=== PATIENT | female | born 1935 | race Caucasian/White ===

== ENCOUNTER → 2018-03-24 | Outpatient (CLI) | payer MEDICARE, BC | END | disposition home or self-care (01) | LOC: KCIC 15:06 | DX: M61.9 Calcification and ossification of muscle, unspecified (principal) | CPT/HCPCS: 71120 ==

== ENCOUNTER → 2021-11-04 | Outpatient (CLI) | payer MEDICARE, BC ==
[~2021-11-04] MED LIST: IOHEXOL 300 MG/ML 100ML VIAL. IV ONE
--- NOTE | 2021-11-04 11:19 | KCIC ---
PQRS Compliance Statement: One or more of the following individualized dose reduction techniques were utilized for this examinat ion: 1. Automated exposure control 2. Adjustment of the mA and/or kV according to patient size 3. Use of iterative reconstruction technique CT NECK SOFT TISSUE WITH IV CONTRAST Clinical Indication: Reason: Swelling Rt side of neck . History: Hx. sinus infection, has been on med s. Comparison: None. TECHNIQUE: Helical CT imaging of the soft tissues of the neck is performed after 95 cc of Omnipaque 3 00 IV contrast. Findings: The visualized maxillary and sphenoid sinuses are clear. The mastoid air cells are partially opacifie d bilaterally. There is a left upper lobe calcified granuloma, partially imaged. The cervical spine alignment is maintained. There is asymmetric prevertebral soft tissue density on the right at the level of C1 with anterior di splacement of the right parapharyngeal fat, image 19. Finding could be due to adenopathy. Recommend c orrelation with direct visualization. There are enhancing soft tissue densities at the base of the tongue right and left of midline. There is a 1.2 cm right submandibular lymph node. There are 2 left submandibular lymph nodes measurin g 1 cm each. There are multiple enlarged bilateral cervical lymph nodes. The epiglottis, aryepiglottic folds, vallecula, and piriform sinuses are normal. The thyroid is symme tric. There are mildly enlarged upper mediastinal lymph nodes. There are bilateral subpectoral lymph nodes. IMPRESSION: 1. There is moderate bilateral cervical adenopathy. Lymphoproliferative disorder or alissa metastases are considerations. 2. There are enhancing soft tissue densities at the base of the tongue. Recommend correlation with d irect visualization. 3. There are mildly enlarged upper mediastinal lymph nodes. CT chest abdomen and pelvis may be usefu l to assess for other adenopathy. Electronically signed by: Mario Mendieta MD (11/04/2021 11:17 AM) [id number]
== END ==
LOC: KCIC CT 08:39
PROVIDERS: ATTEND Family Medicine
DX: R59.0 Localized enlarged lymph nodes (principal); J84.10 Pulmonary fibrosis, unspecified
CPT/HCPCS: 70491; 82565; Q9967

== ENCOUNTER → 2021-11-06 | Outpatient (CLI) | payer MEDICARE, BC ==
[~2021-11-06] MED LIST changes: +IOHEXOL 240 MG/ML 50ML VIAL. PO ONE
--- NOTE | 2021-11-06 16:37 | KCIC ---
PQRS Compliance Statement: One or more of the following individualized dose reduction techniques were utilized for this examinat ion: 1. Automated exposure control 2. Adjustment of the mA and/or kV according to patient size 3. Use of iterative reconstruction technique CT CHEST+ABD+PELVIS W Clinical Indication: Reason: Cervical lymphadenopathy seen on recent CT ST neck. / Spl. Instructions: 95mL Omni 300. / History: Evaluate for enlarged lymph nodes. Comparison: CT soft tissue neck with contrast, 2 days ago. Technique: Helical CT imaging of the chest, abdomen and pelvis is performed after 95 cc of Omnipaque 300 IV contrast. Oral contrast not administered. Findings: There is bulky bilateral axillary and subpectoral adenopathy. Largest lymph node on the right is subp ectoral and measures 1.6 x 1.8 cm. Largest lymph node on the left is also subpectoral and measures 2 x 1.6 cm. There is mediastinal adenopathy, largest lymph node measures 1.4 x 2.6 cm. There is a mildl y enlarged left hilar lymph node measuring 1 cm. Subcentimeter right cardiophrenic lymph node. No central pulmonary embolus. Coronary artery disease. Cardiac size is normal, no pericardial effusio n. No pleural effusion is seen. Central airways are patent. There is mild discoid atelectasis or scar ring in the bilateral lower lobes. Small left upper lobe calcified granuloma and scarring. There is yasmin hepatis and gastrohepatic adenopathy. There are approximately 3 subcentimeter retrocru ral lymph nodes. There is retroperitoneal and mesenteric adenopathy largest of these lymph nodes nara ure approximately 1.2 cm short axis. There is a 2.2 x 1.3 cm lymph node posterior to the IVC just inf erior to the adrenal gland. The liver, gallbladder, pancreas, and adrenal glands are normal. Spleen size upper limits of normal. Atherosclerotic abdominal aorta, no aneurysm. Kidneys enhance symmetrically, no hydronephrosis. The stomach is unremarkable. There is no dilated small bowel. No colon wall thickening is identified. There are enlarged bilateral iliac chain lymph nodes. The urinary bladder is decompressed. Hysterectomy. No pelvic free fluid is identified. There are edwin ral mildly enlarged lymph nodes in the pelvis. No pathologically enlarged inguinal lymph nodes are id entified. Thoracic spine alignment is maintained. IMPRESSION: 1. There is adenopathy throughout the chest, abdomen, and pelvis. Primary consideration is lymphopro liferative disorder. 2. There is otherwise no significant abnormality in the chest, abdomen, or pelvis. Electronically signed by: Mario Mendieta MD (11/06/2021 4:34 PM) [id number]
== END ==
LOC: KCIC CT 12:27
PROVIDERS: ATTEND Family Medicine
DX: R59.0 Localized enlarged lymph nodes (principal); I25.10 Atherosclerotic heart disease of native coronary artery without angina pectoris; I70.0 Atherosclerosis of aorta; R22.1 Localized swelling, mass and lump, neck; Z90.710 Acquired absence of both cervix and uterus
CPT/HCPCS: 71260; 74177; Q9966; Q9967